=== PATIENT | female | born 1990 | race Caucasian/White ===

== ENCOUNTER 2021-01-08 06:45 | Outpatient (RCR) | payer MEDICARE, SELFPAY ==
[2014-09-29 19:43] VITALS: BMI 23.3
== END 2021-02-24 23:59 ==
LOC: IMMUN 06:45
PROVIDERS: PCP Family Medicine; Referring Provider Family Medicine; Visit Provider Family Medicine
DX: Z23 Encounter for immunization (principal)
CPT/HCPCS: 0001A; 0002A; 91300